=== PATIENT | male | born 1985 | race Caucasian/White ===

== ENCOUNTER 2017-04-10 00:17 | Emergency (ER) | payer SELFPAY ==
[~2017-04-10] VITALS: Ht 167.6 cm; Wt 76.8 kg
[2017-04-10 00:30] VITALS: BP 138/94
--- NOTE | 2017-04-10 00:39 | NUR ---
[facility] CALLED, SPOKE WITH PRINCESS. PT NEEDS TO GO TO [facility] [place] [address] [place] [address], [place], [place]. PT NOTIFIED AND WILL GO AFTER SEEN BY .
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
[2017-04-10] MEDS ORDERED: MORPHINE SULFATE 4 MG/ML SYR IVP ONE (01:50)
[2017-04-10] MEDS ORDERED: ONDANSETRON 4 MG/2 ML VIAL IVP ONE (01:50)
[2017-04-10 02:27] LABS: HEMATOCRIT 54.8 % (36-52); MEAN CORPUSCULAR HEMOGLOBIN 29 pg (27-31); MEAN CORPUSCULAR HGB CONC 33 g/dL (33-37); MEAN CORPUSCULAR VOLUME 88 fL (80-94); PLATELET COUNT (AUTO) 198 K/uL (140-450); RED BLOOD CELL COUNT(AUTO) 6.21 MIL/uL (4.20-6.10); RED CELL DISTRIBUTION WIDTH 12.1 % (11.6-13.7); WHITE BLOOD COUNT (AUTO) 18.7 K/uL (4.8-10.8)
--- NOTE | 2017-04-10 02:30 | NUR ---
CONSENT FOR CT SIGNED BY PT-PT [facility] AT THIS TIME.
[2017-04-10 02:45] LABS: ALBUMIN 4.7 g/dL (3.4-5.0); ANION GAP 8.4 (8-16); CARBON DIOXIDE 29.8 mmol/L (21-32); POTASSIUM 4.2 mmol/L (3.5-5.1); TOTAL BILIRUBIN 0.4 mg/dL (0.0-1.0)
[2017-04-10 02:51] LABS: LYMPHOCYTES % (MANUAL) 2 % (20-46); MONOCYTES % (MANUAL) 3 % (5-12)
--- NOTE | 2017-04-10 03:10 | NUR ---
PT SENT TO CT WITH TECH AAOX4 VIA BED.
--- NOTE | 2017-04-10 04:30 | NUR ---
IV removed, catheter intact and site benign. Applied folded 4x4 gauze and tape to stop bleeding.
--- NOTE | 2017-04-10 04:40 | NUR ---
Patient discharged with v/s stable. Written and verbal after care instructions given and explained. Patient verbalized understanding. Ambulatory with steady gait. All questions addressed prior to discharge. Advised to follow up with PMD.
[2017-04-10 04:41] VITALS: BP 122/86
== END 2017-04-10 04:41 | disposition home or self-care (01) ==
LOC: MED 00:17
DX: S53.401A Unspecified sprain of right elbow, initial encounter (principal); S00.03XA Contusion of scalp, initial encounter; S60.222A Contusion of left hand, initial encounter; S29.9XXA Unspecified injury of thorax, initial encounter; S39.91XA Unspecified injury of abdomen, initial encounter; Y04.2XXA Assault by strike against or bumped into by another person, initial encounter
CPT/HCPCS: 36415; 70450; 71260; 72125; 72128; 72131; 73080; 73130; 74177; 80053; 83690; 85025; 96374; 96375; 99285; J2270; J2405; Q9967

== ENCOUNTER 2020-09-24 16:18 | Emergency (ER) | payer MEDICAID ==
[~2020-09-24] VITALS: Ht 165.1 cm; Wt 78.0 kg
[2020-09-24 16:24] VITALS: BP 149/90
[2020-09-24] MEDS ORDERED: DICYCLOMINE HCL LIQUID 20 MG, ALUMINUM HYD/MAG/SIMETHICONE 30 ML, LIDOCAINE VISCOUS 2% ... PO ONE ×3 (16:35)
[2020-09-24] MEDS ORDERED: OMEP40EC24 PO (16:38)
[2020-09-24] MEDS ORDERED: ONDA8TAB87 PO (16:38)
[2020-09-24] MEDS ORDERED: IBUP-2213 PO (16:38)
[2020-09-24] MEDS ORDERED: DICYCLOMINE HCL LIQUID 10 MG/5 ML UDC ONE (16:40)
[2020-09-24] MEDS ORDERED: LIDOCAINE VISCOUS 2% 20 ML UDC ONE (16:40)
[2020-09-24] MEDS ORDERED: ALUMINUM HYD/MAG/SIMETHICONE 30 ML UDC ONE (16:40)
[2020-09-24 16:55] VITALS: BP 149/90
== END 2020-09-24 16:47 | disposition home or self-care (01) ==
LOC: MED 16:18
DX: R10.13 Epigastric pain (principal); R11.2 Nausea with vomiting, unspecified
CPT/HCPCS: 99283

== ENCOUNTER 2021-10-31 13:01 | Emergency (ER) | payer MEDICAID ==
[~2021-10-31] VITALS: Ht 167.6 cm; Wt 74.4 kg
[~2021-10-31 13:01] MED LIST: IBUP-2213 PO; OMEP40EC24 PO; ONDA8TAB87 PO
[2021-10-31 13:06] VITALS: BP 122/70
[2021-10-31] MEDS ORDERED: LIDOCAINE MPF 1% 10 MG/ML VIAL INJ ONE (13:25)
[2021-10-31] MEDS ORDERED: BACITRACIN OINT 500 UNITS/GM PKT TP ONE (13:25)
--- NOTE | 2021-10-31 13:30 | NUR ---
35 Y/O MALE C/O RIGHT THUMB LACERATION WHILE CLEANING AT HOME. NO ACTIVE BLEEDING. PT DENIES FEVER OR CHILLS. PMH: DENIES NKA
[2021-10-31] MEDS ORDERED: LIDOCAINE MPF 1% 5 ML ONE (14:36)
[2021-10-31] MEDS ORDERED: BACI-105 TP (14:56)
[2021-10-31] MEDS ORDERED: ACET-10509 PO (14:56)
[2021-10-31 15:12] VITALS: BP 123/78
--- NOTE | 2021-10-31 15:13 | NUR ---
Patient discharged with v/s stable. Written and verbal after care instructions given and explained. Patient alert, oriented and verbalized understanding of instructions. Ambulatory with steady gait. All questions addressed prior to discharge. ID band removed. Patient advised to follow up with PMD. Rx of TYLENOL, BACITRACIN given. Patient educated on indication of medication including possible reaction and side effects. Opportunity to ask questions provided and answered.
== END 2021-10-31 15:15 | disposition home or self-care (01) ==
LOC: MED 13:01
DX: S61.011A Laceration without foreign body of right thumb without damage to nail, initial encounter (principal); Z79.2 Long term (current) use of antibiotics; Z79.1 Long term (current) use of non-steroidal anti-inflammatories (NSAID); W45.8XXA Other foreign body or object entering through skin, initial encounter; Y93.89 Activity, other specified; Y92.89 Other specified places as the place of occurrence of the external cause; Y99.8 Other external cause status
CPT/HCPCS: 12002; 90471; 90715; 99283; J2001

== ENCOUNTER 2021-11-05 05:32 | Emergency (ER) | payer MEDICAID ==
[~2021-11-05] VITALS: Ht 185.4 cm; Wt 81.6 kg
[~2021-11-05 05:32] MED LIST changes: +ACET-10509 PO; +BACI-105 TP
[2021-11-05 06:01] VITALS: BP 130/80
--- NOTE | 2021-11-05 06:47 | NUR ---
Dr. Larkin examining patient.
[2021-11-05 07:21] VITALS: BP 130/80
--- NOTE | 2021-11-05 07:21 | NUR ---
Patient D/C without papers.
== END 2021-11-05 07:21 | disposition home or self-care (01) ==
LOC: MED 05:32
DX: S61.011D Laceration without foreign body of right thumb without damage to nail, subsequent encounter (principal); X58.XXXD Exposure to other specified factors, subsequent encounter
CPT/HCPCS: 99281

== ENCOUNTER 2021-11-09 06:00 | Emergency (ER) | payer MEDICAID ==
[~2021-11-09] VITALS: Ht 167.6 cm; Wt 81.6 kg
[2021-11-09 06:40] VITALS: BP 132/88
--- NOTE | 2021-11-09 06:43 | NUR ---
TO LOBBY A/W BED AMBULATORY
--- NOTE | 2021-11-09 07:51 | NUR ---
PT WALKED TO BED WITH STEADY GAIT
--- NOTE | 2021-11-09 08:13 | NUR ---
35 y/o male bib self, pt here for right hand 1st digit suture removal. pt states there is pain when he pushes on his thumb. area has no discharge, redness or edema. skin is pink/warm/dry. a&o x4, albanian speaking, with even and steady gait. lungs clear bl, heart rate even and regular. pt denies any fever, cp, sob, or cough at this time. pt states pain is 4/10 at this time. patient positioned for comfort. hob elevated. bed down. ermd made aware of pt. pmh: denies nka med: denies
[2021-11-09] MEDS ORDERED: IBUP-2213 PO (09:09)
[2021-11-09 09:48] VITALS: BP 132/88
--- NOTE | 2021-11-09 09:49 | NUR ---
Patient discharged with v/s stable. Written and verbal after care instructions given and explained. Patient alert, oriented and verbalized understanding of instructions. Ambulatory with steady gait. All questions addressed prior to discharge. ID band removed. Patient advised to follow up with PMD. Rx of ibuprofen (sent) given. Patient educated on indication of medication including possible reaction and side effects. Opportunity to ask questions provided and answered.
== END 2021-11-09 09:49 | disposition home or self-care (01) ==
LOC: MED 06:00
DX: S61.011D Laceration without foreign body of right thumb without damage to nail, subsequent encounter (principal); Z79.899 Other long term (current) drug therapy; X58.XXXD Exposure to other specified factors, subsequent encounter
CPT/HCPCS: 99282